=== PATIENT | female | born 1970 | race Caucasian/White ===

== ENCOUNTER 2024-07-16 11:48 | Emergency (ER) | payer OTHER ==
[2024-07-16] MEDS: Ondansetron 4 MG Tab.DIS PO ONE (12:36)
[2024-07-16] MEDS: fentaNYL 50 MCG/ML SDV IM ONE (12:36)
== END 2024-07-16 13:55 | disposition home or self-care (01) ==
LOC: JP.ED 11:48
DX: S50.02XA Contusion of left elbow, initial encounter (principal); Z90.49 Acquired absence of other specified parts of digestive tract; Z90.710 Acquired absence of both cervix and uterus; Z88.0 Allergy status to penicillin; Z88.2 Allergy status to sulfonamides; Z88.5 Allergy status to narcotic agent; W00.0XXA Fall on same level due to ice and snow, initial encounter
CPT/HCPCS: 70450; 73080; 96372; 99284; J3010; Q0162